=== PATIENT | male | born 1995 | race Caucasian/White ===

== ENCOUNTER 2024-07-19 08:54 | Inpatient (IN) ==
[2024-07-19 09:37] LABS: Basophils # (auto) 0.05 K/uL (0.00-0.20); Basophils % (auto) 0.4 %; Eosinophils # (auto) 0.03 K/uL (0.00-0.50); Eosinophils % (auto) 0.2 %; Hematocrit (blood only) 45.4 % (42.0-52.0); Hemoglobin 14.7 g/dl (14.0-18.0); Immature Granulocytes # (auto) 0.09 K/uL (0.01-0.20); Immature Granulocytes % (auto) 0.7 %; Lymphocytes # (auto) 1.74 K/uL (1.20-3.40); Lymphocytes % (auto) 13.1 %; Mean Corpuscular Hemoglobin 23.9 pg (25.0-34.0); Mean Corpuscular Hgb Conc 32.4 g/dL (32.0-36.0); Mean Corpuscular Volume 73.7 fL (80.0-100.0); Mean Platelet Volume 10.7 fL (9.4-12.4); Monocytes # (auto) 0.77 K/uL (0.11-0.59); Monocytes % (auto) 5.8 %; Neutrophils # (auto) 10.64 K/uL (1.40-6.50); Neutrophils % (auto) 79.8 %; Platelet Count 334 K/uL (130-400); RDW Coefficient of Variation 14.3 % (11.5-14.5); RDW Standard Deviation 37.3 fL (36.4-46.3); Red Blood Count 6.16 M/uL (4.70-6.10); White Blood Count 13.32 K/ul (4.8-10.8)
--- NOTE | 2024-07-19 09:51 | Emergency Department Note ---
History of Present Illness General Chief complaint: Abdominal Pain Stated complaint: R ABDOMINAL AND FLANK PAIN Time Seen by Provider: 07/19/24 09:06 History of Present Illness Maximum Pain Intensity: 5 Patient is a 21-year-old male with past medical history significant for anxiety, GERD, suspected IBS and migraine disorder who presents to the emergency department for evaluation of abdominal pain x 3 days. He reports that on Friday, he began to feel bloated. He subsequently developed pain in the right lower abdomen that radiated laterally. The pain has been fairly constant over the weekend. No associated nausea or vomiting. He thought that his symptoms could be related to the IBS, so he has been avoiding greasy and fatty foods and trying to increase his fluid intake. He denies any urinary symptoms. Had some diarrhea on Friday, but normal formed bowel movements over the last 2 days. No blood, no melena. He states the pain was a little bit better yesterday, but returned overnight. He currently rates his pain a 5/10. He states that while he is laying still the pain is fine, but it worsens if he tries to roll onto the right side in bed. He states he does not have when he walks. He takes omeprazole chronically, and started using some dicyclomine over the weekend to see if this would help with his pain. Home Medications Medication Instructions Recorded Confirmed Type rizatriptan 10 mg tablet (Maxalt) 10 mg PO Q2H PRN migraine headache 04/08/23 06/12/23 Rx #9 tabs Vitamin B-12 1 dose PO QAM 06/05/23 06/12/23 History Vitamin D3 1 dose PO QAM 06/05/23 06/12/23 History sertraline 100 mg tablet 100 mg PO QAM 06/05/23 06/12/23 History trazodone 100 mg tablet 100 mg PO HS 06/05/23 06/12/23 History omeprazole 40 mg capsule,delayed 40 mg PO BID #180 caps 10/07/23 07/19/24 Rx release dicyclomine 10 mg capsule 10 mg PO TID PRN abdominal 02/09/24 07/19/24 Rx pain/diarrhea #90 caps Allergies Allergy/AdvReac Type Severity Reaction Status Date / Time No Known Drug Allergies Allergy Unknown Verified 06/19/23 10:38 Past Med/Surg History Problem List Acute appendicitis (Acute) Medical History IBS (irritable bowel syndrome) GERD (gastroesophageal reflux disease) Vertigo Anxiety and depression History of migraine Surgical History S/P orchiopexy History of hernia repair Social History Smoking Status: Never smoker Second Hand Exposure: No; Do You Dip or Chew Tobacco: No; Hx Alcohol Use: No Hx Substance Use: No Preferred Language: Maori Communication Ability: Effective Patrol Conductor Required: No Beliefs That Will Affect Care: None Current Living Situation: Other Current Living Situation Comment: roommates Feels Safe at Home: Yes Safety Concerns: Feels Safe At This Time Assistive Devices: None Review of Systems A total of 10 systems reviewed and were otherwise negative Physical Exam Vital Signs Vital Signs - 24 hr 07/19/24 08:58 07/19/24 10:00 07/19/24 11:57 Temperature 36.7 C Temperature Source Temporal Artery Scan Pulse Rate 89 86 Pulse Rate [Finger] 79 Pulse Rhythm Regular Pulse Rhythm [Finger] Pulse Strength Normal Pulse Strength [Finger] Respiratory Rate 20 16 18 Respiratory Effort / Characteristics Non-Labored Spontaneous Respiratory Depth Normal Respiratory Pattern Regular Blood Pressure 122/83 124/79 Blood Pressure [Right Arm] 125/84 Blood Pressure Mean 96 Blood Pressure Mean [Right Arm] 97 Blood Pressure Position Sitting Blood Pressure Position [Right Arm] Pulse Oximetry 97 97 98 Oxygen Delivery Method Room Air Room Air Room Air Sepsis Recent Fever Within 48 Hours No Sepsis New/Unexplained Change in Mental Status No Sepsis Action Taken by Nursing No Action Required 07/19/24 11:59 Temperature 37.7 C H Temperature Source Oral Pulse Rate Pulse Rate [Finger] 81 Pulse Rhythm Pulse Rhythm [Finger] Regular Pulse Strength Pulse Strength [Finger] Normal Respiratory Rate 16 Respiratory Effort / Characteristics Non-Labored Spontaneous Respiratory Depth Normal Respiratory Pattern Regular Blood Pressure Blood Pressure [Right Arm] 129/80 Blood Pressure Mean Blood Pressure Mean [Right Arm] 96 Blood Pressure Position Blood Pressure Position [Right Arm] Lying Pulse Oximetry 96 Oxygen Delivery Method Room Air Sepsis Recent Fever Within 48 Hours Sepsis New/Unexplained Change in Mental Status Sepsis Action Taken by Nursing CONSTITUTIONAL: Well-appearing 29-year-old male in no acute distress laying on the gurney. EYES: Pupils equal, round, reactive to light and accommodation. EOMs intact without nystagmus. Sclera are anicteric. ENT: Tympanic membranes intact, with normal landmarks. External canals are clear. Oral and nasopharynx are clear. Mucous membranes are moist, no lesions, tongue and gums appear normal. CARDIOVASCULAR: Regular rate and rhythm. Peripheral pulses easily palpable. RESPIRATORY: Breath sounds equal and clear to auscultation. ABDOMEN: Bowel sounds are present. The abdomen is soft, nondistended, tender to percussion and palpation in the right lower quadrant. No guarding or rebound. INTEGUMENTARY: No lesions or rash, normal skin turgor. LYMPH: No lymphadenopathy. Course Course The patient was seen and assessed as above. External medical records were reviewed. He does have a history of some underlying GI issues, including GERD, and suspected IBS, but presents the emergency department for evaluation of fairly constant right lower quadrant pain over the last several days. IV lock was initiated and laboratory studies were collected. He declined medication needs in the emergency department. CBC with differential, CMP, lipase and urinalysis were collected. CT scan of the abdomen and pelvis with IV contrast was ordered. Diagnostics, as interpreted by me: Laboratory studies: Mildly elevated white count at 13,300 with left shift. No anemia. No electrolyte imbalance or JERRI, no transaminitis. Lipase is normal. Urine microscopy is clear. Imaging studies: CT scan of the abdomen and pelvis with IV contrast concerning for acute appendicitis. Patient was reassessed, all laboratory and diagnostic imaging studies were reviewed with him. Consultation was placed with general surgery, patient was seen by DAVID Urbano, working with Dr. Morris. He will go to the OR for appendectomy when a surgical suite is available. Given the concern for possible microperforation, he was given Zosyn IV pending the OR. Differential diagnosis: Differential diagnoses entertained included UTI, pyelonephritis, kidney stone, appendicitis, IBS, inflammatory bowel disease, infectious versus inflammatory colitis/enteritis, foodborne illness, among others. Administered Medications Acetaminophen (Acetaminophen 325 Mg Tab) 650 mg PO Q6H PRN PRN Reason: Pain & Pre PT Stop: 08/18/24 15:38 Last Admin: 07/19/24 17:46 Dose: 650 mg Documented By: KELSEY Piperacillin Sod/Tazobactam Sod (Zosyn) 4.5 gm in 100 mls @ 25 mls/hr IV Q8H JHONATAN; Protocol Stop: 07/29/24 15:59 Last Admin: 07/19/24 16:43 Dose: 25 mls/hr Documented By: KELSEY Meperidine HCl (Meperidine Hcl 25 Mg/Ml Carp/Vial) 6.25 mg IV Q5M PRN PRN Reason: Surgi Pain/Chills/Rigors Stop: 07/19/24 22:27 Last Admin: 07/19/24 14:30 Dose: 6.25 mg Documented By: JACK Oxycodone HCl (Oxycodone Hcl Ir 5 Mg Tab (Immediate Release)) 10 mg PO Q4H PRN PRN Reason: SEVERE Pain (7,8,9,10) Stop: 08/02/24 15:38 Last Admin: 07/19/24 17:49 Dose: 10 mg Documented By: KELSEY Discontinued Medications Bupivacaine HCl/Epinephrine Bitart (Bupivacaine/Epinephrine 0.25% 1:200,000 30 Ml Vial) Confirm Administered Dose 30 ml .ROUTE .STK-MED ONE Stop: 07/19/24 12:20 Last Admin: 07/19/24 13:59 Dose: 30 ml Documented By: [id number] Fentanyl Citrate (Fentanyl Citrate Pf 100 Mcg/2 Ml Vial) 25 mcg IV Q5M PRN PRN Reason: PACU Use Only-Pain Stop: 07/19/24 20:20 Last Admin: 07/19/24 14:48 Dose: 25 mcg Documented By: Admin: 07/19/24 14:43 Dose: 25 mcg Documented By: Admin: 07/19/24 14:38 Dose: 25 mcg Documented By: Admin: 07/19/24 14:33 Dose: 25 mcg Documented By: JACK Piperacillin Sod/Tazobactam Sod (Zosyn) 4.5 gm in 100 mls @ 200 mls/hr IV NOW ONE; Protocol Stop: 07/19/24 11:08 Last Infusion: 07/19/24 11:35 Dose: Infused Documented By: Admin: 07/19/24 11:02 Dose: 200 mls/hr Documented By: AVM Lactated Ringer's (Lr) 1,000 mls @ 15 mls/hr IV .Q24H JHONATAN Stop: 07/20/24 12:44 Last Admin: 07/19/24 16:47 Dose: Not Given Documented By: KELSEY Ioversol (Optiray 320 100ml) 94 ml IV ONCE ONE Stop: 07/19/24 10:12 Last Admin: 07/19/24 10:11 Dose: 94 ml Documented By: MIGUEL Meperidine HCl (Meperidine Hcl 25 Mg/Ml Carp/Vial) Confirm Administered Dose 25 mg .ROUTE .STK-MED ONE Stop: 07/19/24 14:31 Last Admin: 07/19/24 16:47 Dose: Not Given Documented By: KELSEY Medical Decision Making Differential Diagnosis See ED course. Medical Records Attestation: I reviewed the patient's medical records. Home Medications Current Medication List: was personally reviewed by me Laboratory Data Attestation: I reviewed the patient's lab results. 07/19/24 09:15 07/19/24 09:15 Lab Results 07/19/24 07/19/24 Range/Units 09:15 09:25 WBC 13.32 H (4.8-10.8) K/ul RBC 6.16 H (4.70-6.10) M/uL Hgb 14.7 (14.0-18.0) g/dl Hct 45.4 (42.0-52.0) % MCV 73.7 L (80.0-100.0) fL MCH 23.9 L (25.0-34.0) pg MCHC 32.4 (32.0-36.0) g/dL RDW Std Deviation 37.3 (36.4-46.3) fL RDW Coeff of Adis 14.3 (11.5-14.5) % Plt Count 334 (130-400) K/uL MPV 10.7 (9.4-12.4) fL Immature Gran % (Auto) 0.7 % Neut % (Auto) 79.8 % Lymph % (Auto) 13.1 % [place] % (Auto) 5.8 % Eos % (Auto) 0.2 % Baso % (Auto) 0.4 % Neut # (Auto) 10.64 H (1.40-6.50) K/uL Lymph # (Auto) 1.74 (1.20-3.40) K/uL [place] # (Auto) 0.77 H (0.11-0.59) K/uL Eos # (Auto) 0.03 (0.00-0.50) K/uL Baso # (Auto) 0.05 (0.00-0.20) K/uL Immature Gran # (Auto) 0.09 (0.01-0.20) K/uL Sodium 139 (136-145) mmol/L Potassium 4.2 (3.5-5.1) mmol/L Chloride 100 (98-107) mmol/L Carbon Dioxide 31 (21-32) mmol/L Anion Gap 8 (3-11) BUN 9 (6-23) mg/dl Creatinine 0.91 (0.6-1.4) mg/dl Est Cr Clr Drug Dosing 118.9 ml/min eGFR 117.73 BUN/Creatinine Ratio 9.9 L (10-20) Glucose 115 H (70-99(Fasting)) mg/dl Calcium 10.0 (8.6-10.3) mg/dl Total Bilirubin 0.7 (0.2-1.0) mg/dl AST 13 (13-39) U/L ALT 11 (7-52) U/L Alkaline Phosphatase 72 (34-104) U/L Total Protein 7.4 (6.0-8.3) gm/dl Albumin 4.5 (3.4-5.0) gm/dl Globulin 2.9 (2.5-4.0) gm/dl Albumin/Globulin Ratio 1.6 (0.9-2) Lipase 15 (11-82) U/L Urine Color Yellow Urine Appearance Clear (Clear) Urine pH 7.0 (4.5-7.5) Ur Specific [place] 1.015 (1.000-1.030) Urine Protein Negative (Negative) Urine Glucose (UA) Negative (Negative) Urine Ketones Negative (Negative) Urine Blood Negative (Negative) Urine Nitrite Negative (Negative) Urine Bilirubin Negative (Negative) Urine Urobilinogen Negative (Negative) Ur Leukocyte Esterase Negative (Negative) Imaging Data Attestation: I personally reviewed and interpreted this imaging study as follows: Radiologist's Impression: Abdomen/Pelvis CT 07/19/24 09:41 CT OF THE ABDOMEN AND PELVIS WITH CONTRAST CLINICAL HISTORY: RLQ ABD PAIN X 3 DAYS COMPARISON STUDY: None. TECHNIQUE: Following IV administration of 94 mL of Optiray, axial images of the abdomen and pelvis were obtained from the lung bases to the proximal femurs. Images were reviewed in the axial, sagittal, and coronal planes. IV contrast was administered without complication. Automated exposure control was utilized for the study. A dose lowering technique was utilized adhering to the principles of ALARA. CT DOSE: 925.69 mGy.cm FINDINGS: Lung bases are unremarkable. No pneumatosis, free air or portal venous gas is present. Lateral segment hypodense lesion favors a small cyst. The spleen is mildly enlarged. There is no biliary or pancreatic ductal dilatation. There is trace perihepatic fluid. There is no evidence for a bowel obstruction. Appendicolith within the base of the appendix is noted. Additional appendicoliths are noted. The appendix is markedly dilated, measuring 2.1 cm in caliber. There is moderate periappendiceal stranding and fluid. No free air. No extraluminal contrast is present. Thickening of the base of the cecum is secondary to acute appendicitis. Prominent ileocolic lymph nodes are reactive. A small amount of fluid within the pelvis is present. IMPRESSION: Findings consistent with acute appendicitis. Markedly dilated appendix which contains several appendicoliths. Moderate periappendiceal inflammation. No free air or periappendiceal abscess. Given the degree of appendiceal dilatation and inflammation, occult perforation cannot be excluded. ACT 112: Negative or not required by law. Electronically signed by: Emre Renteria M.D. 07/19/2024 10:29 AM MDM Narrative See ED course. Impression & Plan Acute appendicitis Discharge Plan Visit Data Chief Complaint: Abdominal Pain Stated Complaint: R ABDOMINAL AND FLANK PAIN ED Provider: Fabian Porter ED Midlevel Provider: Shashank Delgado Discharge Problem: Acute appendicitis Patient Disposition: Home - Self-Care Discharge Instructions Interventions: ED Discharge Assessment Last Done: 07/19/24 11:57
[2024-07-19 09:57] LABS: Albumin Globulin Ratio 1.6 (0.9-2); Albumin Level 4.5 gm/dl (3.4-5.0); BUN Creatinine Ratio 9.9 (10-20); Bilirubin,Total 0.7 mg/dl (0.2-1.0); Creatinine Clr Calc Pharmacy 118.9 ml/min; Globulin 2.9 gm/dl (2.5-4.0); Potassium 4.2 mmol/L (3.5-5.1); Total Protein 7.4 gm/dl (6.0-8.3)
[2024-07-19 10:09] LABS: Appearance Urine Clear (Clear); Bilirubin Urine Negative (Negative); Blood Urine Negative (Negative); Color Urine Yellow; Glucose Urine UA Negative (Negative); Ketones Urine Negative (Negative); Leukocyte Esterase Urine Negative (Negative); Nitrite Urine Negative (Negative); Protein Urine Negative (Negative); Specific Gravity Urine 1.015 (1.000-1.030); Urobilinogen Urine Negative (Negative)
[2024-07-19] MEDS: OPTIRAY 320 100ml IV ONE (10:11)
--- NOTE | 2024-07-19 10:32 | CT Scan Report ---
CT OF THE ABDOMEN AND PELVIS WITH CONTRAST CLINICAL HISTORY: RLQ ABD PAIN X 3 DAYS COMPARISON STUDY: None. TECHNIQUE: Following IV administration of 94 mL of Optiray, axial images of the abdomen and pelvis we re obtained from the lung bases to the proximal femurs. Images were reviewed in the axial, sagittal, and coronal planes. IV contrast was administered without complication. Automated exposure control wa s utilized for the study. A dose lowering technique was utilized adhering to the principles of ALARA . CT DOSE: 925.69 mGy.cm FINDINGS: Lung bases are unremarkable. No pneumatosis, free air or portal venous gas is present. Late ral segment hypodense lesion favors a small cyst. The spleen is mildly enlarged. There is no biliary or pancreatic ductal dilatation. There is trace perihepatic fluid. There is no evidence for a bowel o bstruction. Appendicolith within the base of the appendix is noted. Additional appendicoliths are not ed. The appendix is markedly dilated, measuring 2.1 cm in caliber. There is moderate periappendiceal stranding and fluid. No free air. No extraluminal contrast is present. Thickening of the base of the cecum is secondary to acute appendicitis. Prominent ileocolic lymph nodes are reactive. A small amoun t of fluid within the pelvis is present. IMPRESSION: Findings consistent with acute appendicitis. Markedly dilated appendix which contains se veral appendicoliths. Moderate periappendiceal inflammation. No free air or periappendiceal abscess. Given the degree of appendiceal dilatation and inflammation, occult perforation cannot be excluded. ACT 112: Negative or not required by law. Electronically signed by: Emre Renteria M.D. 07/19/2024 10:29 AM
[2024-07-19] MEDS: PIPERACILLIN/TAZOBACTAM 4.5 GM/100 ML BAG IV ONE (11:02)
[2024-07-19] MEDS ORDERED: ROCURONIUM BROMIDE 10 MG/ML 5 ML VIAL IV ONE ×2 (11:38→12:55)
[2024-07-19] MEDS ORDERED: PROPOFOL IV EMULSION 10 MG/ML 20 ML VIAL IV ONE ×3 (11:38→13:31)
[2024-07-19] MEDS ORDERED: ONDANSETRON INJ 2 MG/ML 2 ML VIAL ONE (11:38)
[2024-07-19] MEDS ORDERED: DEXAMETHASONE SOD INJ 4 MG/ML VIAL ONE (11:38)
[2024-07-19] MEDS ORDERED: LIDOCAINE 2% 2 ML VIAL/AMP(20MG/ML) INFIL ONE (11:38)
[2024-07-19] MEDS ORDERED: MIDAZOLAM HCL 1 MG/ML 2ML VIAL ONE (11:39)
[2024-07-19] MEDS ORDERED: fentaNYL citrate PF 100 MCG/2 ML VIAL ONE (11:39)
[2024-07-19] MEDS ORDERED: SUGAMMADEX SODIUM 200 MG/2 ML VIAL IV ONE (11:40)
--- NOTE | 2024-07-19 11:44 | Surgery Consultation ---
Date of Consultation July 19, 2024 Assessment & Plan (1) Acute appendicitis: CT scan images and results were personally viewed and interpreted by myself He has some significant inflammation and dilated appendix with several appendicoliths with likely perforation based on his history Will plan on a laparoscopic appendectomy, possible open today Consent was obtained, risks discussed including bleeding, infection, leak, abscess History of Present Illness Reason for Consultation: Acute appendicitis History of Present Illness This is a 29-year-old male who came to the ER with right lower quadrant abdominal pain sharp in nature since Friday afternoon. He states that the pain was getting worse however yesterday the pain did improve. There is no radiation of the pain. There is no aggravating or relieving factors. He denies any nausea or vomiting or constipation or diarrhea. He did have an open inguinal hernia repair at age 11, but no other abdominal surgeries. Denies any fevers or chills. Allergies Allergy/AdvReac Type Severity Reaction Status Date / Time No Known Drug Allergies Allergy Unknown Verified 06/19/23 10:38 Home Medications Medication Instructions Recorded Confirmed Type rizatriptan 10 mg tablet (Maxalt) 10 mg PO Q2H PRN migraine headache 04/08/23 06/12/23 Rx #9 tabs Vitamin B-12 1 dose PO QAM 06/05/23 06/12/23 History Vitamin D3 1 dose PO QAM 06/05/23 06/12/23 History sertraline 100 mg tablet 100 mg PO QAM 06/05/23 06/12/23 History trazodone 100 mg tablet 100 mg PO HS 06/05/23 06/12/23 History omeprazole 40 mg capsule,delayed 40 mg PO BID #180 caps 10/07/23 07/19/24 Rx release dicyclomine 10 mg capsule 10 mg PO TID PRN abdominal 02/09/24 07/19/24 Rx pain/diarrhea #90 caps Patient History Medical History IBS (irritable bowel syndrome) GERD (gastroesophageal reflux disease) Vertigo Anxiety and depression History of migraine Surgical History S/P orchiopexy History of hernia repair Social History Smoking Status: Never smoker Second Hand Exposure: No; Do You Dip or Chew Tobacco: No; Hx Alcohol Use: No Hx Substance Use: No Preferred Language: Ecuadorean Communication Ability: Effective Envelope Machine Adjuster Required: No Beliefs That Will Affect Care: None Current Living Situation: Other Current Living Situation Comment: roommates Feels Safe at Home: Yes Assistive Devices: None Review of Systems Constitutional: no fever and no chills Eyes: no blind spots and no worsening vision Ear, Nose, Mouth, Throat: no ear pain and no hearing loss Respiratory: no cough and no dyspnea Cardiovascular: no chest pain and no dyspnea on exertion Gastrointestinal: + abdominal pain and + nausea; no vomiti ng Genitourinary: no dysuria or no nocturia Musculoskeletal: no back pain and no neck pain Integumentary: no acne, no erythema and no urticaria Neurologic: no gait abnormality, no headache(s) and no abnormal speech Psychiatric: no behavioral changes and no depression Hematologic / Lymphatic: no easy bleeding and no easy bruising Physical Exam Constitutional: WD/WN, vitals as above Eyes: PERRL, conjunctivae normal, anicteric sclerae ENMT: external ear and nose normal, oropharynx normal Neck: trachea midline, no thyromegaly Respiratory: normal respiratory effort, lungs clear to auscultation Cardiovascular: RRR, no murmur, no edema Gastrointestinal (Abdomen): Inspection/Auscultation: abdomen normal to inspection; abdomen not distended Percussion/Palpation: + abdomen tender (Right lower quadrant), + guarding and abdomen soft; no hernia Musculoskeletal: no cyanosis or clubbing, extremities motor strength 5/5 Skin: no rashes, warm and dry Neurologic: PERRL, EOMI, accommodation nl, no face palsy, no dysarthria Psychiatric: A+Ox3, euthymic affect Results & Data Vital Signs (Past 12 Hours) Vital Signs Temp Pulse Pulse Resp BP BP Pulse Ox 07/19/24 10:00 79 16 125/84 97 07/19/24 08:58 36.7 C 89 20 122/83 97 O2 Del Method 07/19/24 10:00 Room Air 07/19/24 08:58 Room Air PG Care Time/CCT Total # of Minutes Spent Total Time Spent with Patient: Total time spent is greater than 50% in coordination of care (as documented) at patient's floor/unit and/or counseling patient: Coding Level of Care Code 88347 OFFICE CONSULT LVL Diagnoses Acute appendicitis K35.80
[2024-07-19] MEDS ORDERED: KETOROLAC 30 MG/ML VIAL ONE (11:45)
[2024-07-19] MEDS ORDERED: ONDANSETRON INJ 2 MG/ML 2 ML VIAL IV PRN (12:20)
[2024-07-19] MEDS ORDERED: ePHEDrine sulfate 50 MG/ML AMP IV PRN (12:20)
[2024-07-19] MEDS ORDERED: ATROPINE SULFATE 0.1 MG/ML 10ML SYR IV PRN (12:20)
--- NOTE | 2024-07-19 12:20 | Anesthesiology Consultation ---
Date of Service July 19, 2024 Assessment & Plan (1) Encounter for pre-operative examination: Chart Review Chart Review: Acceptable Risk for Surgery and Patient NOT seen in Pre Admission Testing Consults Requested none History Surgery Operation Date: 07/19/24 14:45 Proposed Procedures p Laparoscopic Appendectomy - Abad Morris DO Height/Weight Height: 5 ft 8.5 in Weight: 77.7 kg Allergies Allergy/AdvReac Type Severity Reaction Status Date / Time No Known Drug Allergies Allergy Unknown Verified 06/19/23 10:38 Medications Home Medications Medication Instructions Recorded Confirmed Last Taken rizatriptan 10 mg tablet (Maxalt) 10 mg PO Q2H PRN migraine headache 04/08/23 06/12/23 Unknown #9 tabs Vitamin B-12 1 dose PO QAM 06/05/23 06/12/23 06/10/23 Vitamin D3 1 dose PO QAM 06/05/23 06/12/23 06/10/23 sertraline 100 mg tablet 100 mg PO QAM 06/05/23 06/12/23 06/12/23 trazodone 100 mg tablet 100 mg PO HS 06/05/23 06/12/23 06/11/23 omeprazole 40 mg capsule,delayed 40 mg PO BID #180 caps 10/07/23 07/19/24 Unknown release dicyclomine 10 mg capsule 10 mg PO TID PRN abdominal 02/09/24 07/19/24 Unknown pain/diarrhea #90 caps NPO Date Last Intake of Fluids: 07/19/24 Time Last Intake of Fluids: 08:30 Date Last Intake of Solids: 07/18/24 Time Last Intake of Solids: 21:30 Past Medical History Medical History IBS (irritable bowel syndrome) GERD (gastroesophageal reflux disease) Vertigo Anxiety and depression History of migraine Past Surgical History Surgical History S/P orchiopexy History of hernia repair Social History Smoking Status: Never smoker Do You Dip or Chew Tobacco: No Hx Alcohol Use: No Hx Substance Use: No substance use type: does not use Physical Exam Vital Signs Last Vital Signs Temp 99.9 F H 07/19/24 11:59 Pulse 81 11/11/24 11:59 Resp 16 07/19/24 11:59 BP 129/80 07/19/24 11:59 Pulse Ox 96 07/19/24 11:59 O2 Del Method Room Air 07/19/24 11:59 Testing Laboratory Results 07/19/24 09:15 07/19/24 09:15 Urine Color Yellow 07/19/24 09:25 Urine Appearance Clear (Clear) 07/19/24 09:25 Urine pH 7.0 (4.5-7.5) 07/19/24 09:25 Ur Specific [place] 1.015 (1.000-1.030) 07/19/24 09:25 Urine Protein Negative (Negative) 07/19/24 09:25 Urine Glucose (UA) Negative (Negative) 07/19/24 09:25 Urine Ketones Negative (Negative) 07/19/24 09:25 Urine Nitrite Negative (Negative) 07/19/24 09:25 Ur Leukocyte Esterase Negative (Negative) 07/19/24 09:25
[2024-07-19] MEDS: BUPIVACAINE/EPINEPHRINE 0.25% 1:200,000 30 ML VIAL ONE (13:59)
--- NOTE | 2024-07-19 14:09 | Post Operative Brief Note ---
PG Immediate Post Op with CF Date of Surgery July 19, 2024 Pre & Post Diagnosis Operation Date: 07/19/24 14:45 Pre-Op Diagnosis: Acute Appendicitis Post-Op Diagnosis: Acute Perforated Appendicitis I identified the patient and participated in the time-out.: Yes Procedure Operation Date: 07/19/24 14:45 Actual Procedures p Laparoscopic Appendectomy(Not Applicable) - Abad Morris DO Surgeon Abad Morris DO Manager Logistic Ivonne HERNANDEZ Estimated Blood Loss 20 Findings See Below Perforated appendicitis Healthy appearing cecal staple line Specimens Specimen Description: A: Appendix Drains Andujar Catheter and Papo-Parker Drain Anesthesia Type General Complications none Disposition Disposition: Recovery Room
--- NOTE | 2024-07-19 14:12 | Operative Report ---
PG Post Operative Report Pre & Post Diagnosis Operation Date: 07/19/24 14:45 Pre-Op Diagnosis: Acute Appendicitis Post-Op Diagnosis: Acute Perforated Appendicitis I identified the patient and participated in the time-out.: Yes Procedure Operation Date: 07/19/24 14:45 Actual Procedures p Laparoscopic Appendectomy(Not Applicable) - Abad Morris DO Surgeon Abad Morris DO Ethylene Plant Operator Ivonne HERNANDEZ Estimated Blood Loss 20 Findings See Below Perforated appendix Healthy appearing cecal staple line Specimens Appendix to pathology Drains 19 Yoruba Abad drain in the right lower quadrant and pelvis Anesthesia Type General Complications none Disposition Disposition: Recovery Room Indications 29-year-old male with acute appendicitis Description of Procedure The patient was brought to the OR and placed in the supine position and SCD's placed. At this time he underwent general endotracheal anesthesia without incident. At this time a Andujar catheter was placed under sterile conditions. His abdomen was prepped and draped in the usual sterile fashion. He was given appropriate pre-operative antibiotics. A timeout was called, the procedure was verified as Laparoscopic appendectomy, possible open. Surgical, anesthesia and nursing teams agreed and the procedure was begun. After injection of 0.25% Marcaine with epinephrine, a supraumbilical incision was made using a #11 blade scalpel and carried down to the fascia with a hemostat. The abdomen was then elevated with towel clamps and entered using the Veress needle confirming position using the saline drop test. Pneumoperitoneum was established and 5mm trocar was placed. Laparoscope was introduced. No injury was seen from our entrance to the abdomen. At this time a 5mm suprapubic port and 12mm LLQ port were placed under direct visualization. The patient was placed in Trendelenburg and rotated to the left. At this time the appendix was visualized and the tip was freed and elevated toward the abdominal wall. The appendix itself was densely adhered to the right pelvic sidewall. This was mobilized using blunt dissection and we did encounter purulence consistent with an abscess. There was also a small perforation of the appendix just distal to the base. A window was created in the mesoappendix at the base of the appendix. A 45mm purple load stapler was then fired across the base of the appendix which appeared healthy. The mesoappendix was then taken using Harmonic device. The appendix was then placed in an Endocatch bag and removed through the LLQ port site. Staple line was inspected and was intact. Hemostasis was complete. A small amount of purulent fluid was suctioned out of the RLQ and pelvis. 5 mL of Floseal hemostatic agent was placed along the staple line. A 19 Yoruba Abad drain was then introduced through the left lower quadrant port site and brought out through the suprapubic port and laid in the right paracolic gutter and right pelvis. The 12 mm port was then closed at the fascial level using a 0 Vicryl suture. All ports were removed under direct visualization and no bleeding was noted. The abdomen was desufflated and the skin was closed using 4-0 Monocryl in a subcuticular fashion. Sterile dressings were applied. Andujar catheter was removed. The patient was then awakened from anesthesia having remained stable throughout the entire case and transported to PACU. All needle and sponge counts were correct x 2. The nurse practitioner was present scrubbed the entire case. She was essential in positioning, prepping and draping the patient, driving laparoscope, retraction exposure, closure of the incisions and placement of dressings. I attest to the content of the Intraoperative Record and any orders documented therein. Any exceptions are noted below.
[2024-07-19] MEDS: MEPERIDINE HCL 25 MG/ML CARP/VIAL IV PRN (14:30)
[2024-07-19] MEDS: fentaNYL citrate PF 100 MCG/2 ML VIAL IV PRN (14:33)
--- NOTE | 2024-07-19 15:01 | Anesthesiology Progress Note ---
Date of Service July 19, 2024 Anesthesia Post Procedure Vital Signs Vital Signs: Temp Pulse Pulse Pulse Resp BP BP 07/19/24 14:50 91 H 16 121/75 07/19/24 14:40 88 16 117/75 07/19/24 14:30 88 16 121/82 07/19/24 14:24 97.0 F L 104 H 16 116/84 07/19/24 11:59 99.9 F H 81 16 07/19/24 11:57 86 18 124/79 07/19/24 10:00 79 16 07/19/24 08:58 98.1 F 89 20 122/83 BP Pulse Ox O2 Del Method O2 Flow Rate 07/19/24 14:50 96 Oxymask 5 07/19/24 14:40 99 Oxymask 5 07/19/24 14:30 99 Oxymask 5 07/19/24 14:24 99 Oxymask 5 07/19/24 11:59 129/80 96 Room Air 07/19/24 11:57 98 Room Air 07/19/24 10:00 125/84 97 Room Air 07/19/24 08:58 97 Room Air Pain Intensity Right Lower Abdomen: Pain Intensity: 8 Transfer of Care Handoff Completed per policy Notes Mental Status: alert / awake / arousable and participated in evaluation Patient Amnestic to Procedure: Yes Nausea / Vomiting: adequately controlled Pain: adequately controlled Airway Patency, RR, SpO2: stable & adequate BP & HR: stable & adequate Hydration State: stable & adequate Anesthetic Complications: no major complications apparent and Pt Satisfied with anesthetic care
[2024-07-19] MEDS ORDERED: ACETAMINOPHEN 1,000 MG/100 ML VIAL IV PRN (15:39)
[2024-07-19] MEDS ORDERED: MoRPHine SULFATE 4 MG/ML 1 ML CARP\\VIAL IV PRN (15:39)
[2024-07-19] MEDS ORDERED: MoRPHine SULFATE 2 MG/ML CARP IV PRN (15:39)
[2024-07-19] MEDS: PIPERACILLIN/TAZOBACTAM 4.5 GM/100 ML BAG IV SCH (16:43)
[2024-07-19] MEDS: LACTATED RINGER'S 1,000 ML IV SCH (16:47)
[2024-07-19] MEDS: MEPERIDINE HCL 25 MG/ML CARP/VIAL ONE (16:47)
[2024-07-19] MEDS: ACETAMINOPHEN 325 MG TAB PO PRN (17:46)
[2024-07-19] MEDS: oxyCODONE HCL IR 5 MG TAB (IMMEDIATE RELEASE) PO PRN ×2 (17:49→23:19)
[2024-07-19] MEDS: traZODone HCL 100 MG TAB PO SCH (20:58)
[2024-07-19] MEDS: PANTOprazole 40 MG TAB PO SCH (20:58)
[2024-07-20] MEDS: ONDANSETRON INJ 2 MG/ML 2 ML VIAL IV PRN (06:52)
[2024-07-20] MEDS: SERTRALINE HCL 100 MG TABLET PO SCH (08:08)
--- NOTE | 2024-07-20 08:25 | Surgery Progress Note ---
Date of Service July 20, 2024 Assessment & Plan (1) Acute appendicitis: Plan: POD 1 perforated lap appy with Dr[address] Morris expected post surgical pain VSS, labs pending, incentive spironmetry Q1h while awake some urinary hesitancy overnight but was able to void, increase po H20, oob to BR tolerating diet surgical drain serosanguineous 25/75cc in 12/24hr Continue IV antibiotics Admission and Anticipated Discharge Date Admission Date: July 19, 2024 Supervising Physician Co-Signing Physician Notes Postop day 1 laparoscopic appendectomy for perforated appendicitis He is doing well and labs are pending He is tolerating a low fiber diet He is having some trouble urinating but is able to empty about half of his bladder Continue his IV antibiotics for today we will follow-up on his labs If he is afebrile and is able to tolerate his diet he may be discharged in the next 24 hours Subjective pt report pain controlled with medication hesitancy with urination last night but was able to void denies cp, sob, n/v Review of Systems Constitutional: no fever and no chills Respiratory: no dyspnea Cardiovascular: no chest pain Gastrointestinal: + abdominal pain; no nausea and no vomit ing Genitourinary: + urinary hesitancy Musculoskeletal: no muscle weakness Psychiatric: no confusion Physical Exam Constitutional: cooperative and comfortable; no acute distress Respiratory: normal respiratory effort and able to speak in complete sentences; no respiratory distress Cardiovascular: Rate/Rhythm: + tachycardic (95) Gastrointestinal (Abdomen): Inspection/Auscultation: + abdominal surgical incision and + abdominal surgical drain present; abdomen not distended Percussion/Palpation: + abdomen tender and abdomen soft Psychiatric: A+Ox3, euthymic affect Results & Data Vital Signs (Past 12 Hours) Vital Signs Temp Pulse Resp BP BP Pulse Ox O2 Del Method 07/20/24 07:57 98.4 F 95 H 16 119/73 95 Room Air 07/20/24 03:07 98.4 F 70 16 109/76 97 Room Air 07/19/24 23:00 98.1 F 81 18 114/72 98 Room Air PG Care Time/CCT Total # of Minutes Spent Total Time Spent with Patient: Total time spent is greater than 50% in coordination of care (as documented) at patient's floor/unit and/or counseling patient: Coding Level of Care Code 38871 Post Operative Follow-Up Diagnoses Acute appendicitis K35.80
[2024-07-20 10:20] LABS: Basophils # (auto) 0.02 K/uL (0.00-0.20); Basophils % (auto) 0.1 %; Hemoglobin 14.4 g/dl (14.0-18.0); Immature Granulocytes # (auto) 0.11 K/uL (0.01-0.20); Immature Granulocytes % (auto) 0.8 %; Lymphocytes % (auto) 10.5 %; Mean Corpuscular Hemoglobin 23.8 pg (25.0-34.0); Mean Corpuscular Hgb Conc 32.7 g/dL (32.0-36.0); Mean Corpuscular Volume 72.7 fL (80.0-100.0); Mean Platelet Volume 10.1 fL (9.4-12.4); Monocytes # (auto) 0.95 K/uL (0.11-0.59); Monocytes % (auto) 7.1 %; Neutrophils # (auto) 10.86 K/uL (1.40-6.50); Neutrophils % (auto) 81.5 %; Platelet Count 360 K/uL (130-400); RDW Coefficient of Variation 14.2 % (11.5-14.5); Red Blood Count 6.05 M/uL (4.70-6.10); White Blood Count 13.34 K/ul (4.8-10.8)
[2024-07-20 10:39] LABS: BUN Creatinine Ratio 13.8 (10-20); Calcium 9.6 mg/dl (8.6-10.3); Creatinine Clr Calc Pharmacy 115.1 ml/min; Potassium 3.9 mmol/L (3.5-5.1)
--- NOTE | 2024-07-21 07:44 | Surgery Progress Note ---
Date of Service July 21, 2024 Assessment & Plan (1) Acute appendicitis: Plan: POD#2 laparoscopic appendectomy for perforated appendicitis labs are pending this AM. last evening's vitals show HR 118 and Temp 99, will re-eval labs and vitals this AM upon new assessment Pt reports worsening pain this AM, last received oxycodone at midnight....will adjust tylenol to standing and add a dose of toradol this AM, continue prn narcotics Continue KAYLEIGH drain and IV abx for now Encourage OOB ambulating/pulmonary toilet Will continue to monitor closely, he is at high risk for developing abscess given his appendix was perforated Admission and Anticipated Discharge Date Admission Date: July 19, 2024 Supervising Physician Co-Signing Physician Notes Postoperative day 2 laparoscopic appendectomy for perforated appendicitis He does seem improved although pain control has been an issue, we will push the p.o. Oxy and IV Tylenol His white count is improved and is afebrile He has been voiding much more frequently without issue as opposed yesterday Tentative plan will be discharge tomorrow if he continues to improve and is afebrile Subjective Patient reports 9/10 pain this AM while sitting at the side of the bed. Mostly across lower abdomen. No nausea/vomiting. Reports lack of sleep overnight due to IV's beeping. Complains of intermittent lightheadedness. Says his narcotics were limited to prevent constipation, but he has started passing flatus. Physical Exam Physical Exam: awake, sitting at side of the bed with hands on walker appears in pain and spli nting with pillow Respiratory: normal respiratory effort Gastrointestinal (Abdomen): KAYLEIGH drain with serosang slightly cloudy appearing fluid PG Care Time/CCT Total # of Minutes Spent Total Time Spent with Patient: Total time spent is greater than 50% in coordination of care (as documented) at patient's floor/unit and/or counseling patient: Coding Level of Care Code 99370 Post Operative Follow-Up Diagnoses Acute appendicitis K35.80
[2024-07-21] MEDS: ACETAMINOPHEN 1,000 MG/100 ML VIAL IV SCH (07:48)
[2024-07-21] MEDS: KETOROLAC TROMETHAMINE 15 MG/ML VIAL IV ONE (07:48)
[2024-07-21 08:25] LABS: Basophils # (auto) 0.04 K/uL (0.00-0.20); Basophils % (auto) 0.3 %; Eosinophils # (auto) 0.03 K/uL (0.00-0.50); Eosinophils % (auto) 0.2 %; Hematocrit (blood only) 42.7 % (42.0-52.0); Hemoglobin 13.8 g/dl (14.0-18.0); Immature Granulocytes # (auto) 0.17 K/uL (0.01-0.20); Immature Granulocytes % (auto) 1.4 %; Lymphocytes # (auto) 1.54 K/uL (1.20-3.40); Lymphocytes % (auto) 12.7 %; Mean Corpuscular Hemoglobin 23.6 pg (25.0-34.0); Mean Corpuscular Hgb Conc 32.3 g/dL (32.0-36.0); Mean Platelet Volume 10.3 fL (9.4-12.4); Monocytes # (auto) 1.11 K/uL (0.11-0.59); Monocytes % (auto) 9.1 %; Neutrophils # (auto) 9.28 K/uL (1.40-6.50); Neutrophils % (auto) 76.3 %; Platelet Count 328 K/uL (130-400); RDW Coefficient of Variation 14.1 % (11.5-14.5); RDW Standard Deviation 37.1 fL (36.4-46.3); Red Blood Count 5.85 M/uL (4.70-6.10); White Blood Count 12.17 K/ul (4.8-10.8)
[2024-07-21] MEDS ORDERED: ACETAMINOPHEN 1,000 MG/100 ML VIAL IV PRN (11:02)
[2024-07-21] MEDS: ACETAMINOPHEN 325 MG TAB PO SCH (13:42)
--- NOTE | 2024-07-22 08:01 | Surgery Progress Note ---
Date of Service July 22, 2024 Assessment & Plan (1) Acute appendicitis: Plan: POD#3 laparoscopic appendectomy for perforated appendicitis labs are pending this AM. vitals are stable Pain manageable on PO regimen of tylenol/oxcodone Continue KAYLEIGH drain for now, 30cc documented. will consider removal day of dispo Encourage OOB ambulating/pulmonary toilet Pending blood work we may consider dispo later today if pt continues to feel & do well Plan on d/c on po abx and close follow up in the office with dr. brody Admission and Anticipated Discharge Date Admission Date: July 19, 2024 Supervising Physician Co-Signing Physician Notes Postoperative day 3 laparoscopic appendectomy for perforated appendicitis He is tolerating a diet without nausea and vomiting and is passing flatus, but no BM His white count continues to downtrend and has been afebrile His pains been controlled He can be discharged today and we will remove his drain prior to discharge Subjective Patient says he slept a bit better last night than previously. Pain remains present, but is manageable on pain regimen. Tolerating diet, no n/v. + flatus. No BM. Physical Exam Physical Exam: awake/alert, no distress Respiratory: normal respiratory effort Gastrointestinal (Abdomen): Inspection/Auscultation: + abdominal surgical incision (c/d/i) Percussion/Palpation: + abdomen tender (bilateral lower abdomen, worse in RLQ and drain site ) and abdomen soft KAYLEIGH serosang, 30cc documented Results & Data Vital Signs (Past 12 Hours) Vital Signs Temp Pulse Resp BP Pulse Ox O2 Del Method 07/21/24 21:51 98.5 F 97 H 16 130/81 96 Room Air PG Care Time/CCT Total # of Minutes Spent Total Time Spent with Patient: Total time spent is greater than 50% in coordination of care (as documented) at patient's floor/unit and/or counseling patient: Coding Level of Care Code 91232 Post Operative Follow-Up Diagnoses Acute appendicitis K35.80
[2024-07-22 08:13] VITALS: BP 111/68; PULSE 72; RESP 18; TEMP 98.1; O2SAT 95
[2024-07-22 08:54] LABS: Basophils # (auto) 0.06 K/uL (0.00-0.20); Basophils % (auto) 0.6 %; Eosinophils # (auto) 0.14 K/uL (0.00-0.50); Eosinophils % (auto) 1.3 %; Hematocrit (blood only) 38.2 % (42.0-52.0); Hemoglobin 12.7 g/dl (14.0-18.0); Immature Granulocytes # (auto) 0.22 K/uL (0.01-0.20); Lymphocytes # (auto) 1.33 K/uL (1.20-3.40); Lymphocytes % (auto) 12.3 %; Mean Corpuscular Hemoglobin 23.9 pg (25.0-34.0); Mean Corpuscular Hgb Conc 33.2 g/dL (32.0-36.0); Mean Corpuscular Volume 71.9 fL (80.0-100.0); Mean Platelet Volume 10.4 fL (9.4-12.4); Monocytes # (auto) 0.97 K/uL (0.11-0.59); Neutrophils # (auto) 8.07 K/uL (1.40-6.50); Neutrophils % (auto) 74.8 %; Platelet Count 330 K/uL (130-400); RDW Standard Deviation 35.9 fL (36.4-46.3); Red Blood Count 5.31 M/uL (4.70-6.10); White Blood Count 10.79 K/ul (4.8-10.8)
[2024-07-22 09:09] LABS: BUN Creatinine Ratio 8.9 (10-20); Calcium 9.1 mg/dl (8.6-10.3); Creatinine Clr Calc Pharmacy 136.9 ml/min; Potassium 3.6 mmol/L (3.5-5.1)
--- NOTE | 2024-07-22 13:55 | Discharge Summary ---
Date of Service July 22, 2024 Principal Diagnosis acute appendicitis with perforation Discharge Exam Constitutional cooperative and comfortable; no acute distress Respiratory normal respiratory effort and able to speak in complete sentences; no respiratory distress Cardiovascular Rate/Rhythm: regular rate Gastrointestinal (Abdomen) Inspection/Auscultation: + abdominal surgical incision and + abdominal surgical drain present; abdomen not distended Percussion/Palpation: + abdomen tender and abdomen soft Psychiatric A+Ox3, euthymic affect Discharge Data Allergies Allergy/AdvReac Type Severity Reaction Status Date / Time No Known Drug Allergies Allergy Unknown Verified 06/19/23 10:38 Procedures Performed Operation Date: 07/19/24 14:45 Actual Procedures p Laparoscopic Appendectomy(Not Applicable) - Abad Morris, Ordered Studies 07/19/24 09:41 CT abd pelvis IV con only Stat Hospital Course (1) Acute appendicitis: This is a 29 yo male who presented to the [facility] ED on 07/19/24 with abdominal pain. Workup in the ED showed a WBC of [address] a/p concerning for acute appendicitis. The patient was tender to palpation in the RLQ. Patient made NPO with IVF and booked for the OR. On 07/19/24 the patient went to the OR with Dr Morris for a Laparoscopic Appendectomy. The patient tolerated the procedure well, see operative report for full details. He was admitted to the hospital for IV antibiotics, and a KAYLEIGH drain was placed intraoperatively. Throughout the course of his stay his diet was advanced, pain managed on prn meds, and incisions clean/dry/intact. On POD#3 07/22/24 the patient was deemed stable for discharge to home. His KAYLEIGH drain was removed prior to discharge, he was given return precautions, follow up recommendations, a prescription for an antibiotic and analgesics. All questions answered. Total Time Total Time Spent Total Time Spent (In Minutes): 10 Discharge Plan Discharge Items Patient Disposition: Home - Self-Care Reason For Visit: S/P LAP APPY Discharge Diagnosis: perforated appendicitis Activity: As commented below Lifting: No more than 10 pounds Bathing Comment: you can shower, soaking in pools/baths for 2 weeks Exercise/Sports: Wait until after follow-up appointment Driving/Machine Use: no driving while taking narcotics for pain Non-emergency contact: Surgeon Call non-emergency contact if: you have any medication questions, your symptoms worsen, your pain is not controlled, your pain is worsening, you have a fever, your temperature is above 101.5, your wound has increased redness, your wound has increased drainage and your wound pain has increased Follow-up/Referrals: Abad Morris DO [Physician] - 07/30/24 9:30 am (call office for a follow up 1-2 weeks ) [facility] [Primary Care Provider] - Diet: Regular Addtl Attending Provider Instructions: You have small white bandages on underneath that are over your incisions called steri strips. You may shower with these on. They will tend to fall off on their own in a 7-10 days. keep your KAYLEIGH drainage site covered with a bandaid &/or dry gauze/tape until healed. change daily and as needed You may purchase Tylenol and or Ibuprofen over the counter if needed for addition pain control over the next few days. Take per manufacturers instructions, Do not take more than 3 grams of Tylenol in 24 hours. Take all of your antibiotics as directed even if you are feeling better. Pending Studies at Discharge: Yes Stand-Alone Forms: Work/School Release (ED), [facility], Smoking Cessation Medications and DC Order Prescriptions: New oxycodone 5 mg tablet 5 - 10 mg PO .[id number] MDD no more than 6 tabs in 24hours PRN (Reason: pain) Qty: 15 0RF amoxicillin-pot clavulanate 875-125 mg tablet 1 tab PO Q12H Qty: 20 0RF Continued omeprazole 40 mg capsule,delayed release(DR/EC) 40 mg PO BID Qty: 180 1RF dicyclomine 10 mg capsule 10 mg PO TID PRN (Reason: abdominal pain/diarrhea) Qty: 90 2RF rizatriptan [Maxalt] 10 mg tablet 10 mg PO Q2H PRN (Reason: migraine headache) Qty: 9 3RF Rx Instructions: do not exceed 3 doses per 24 hrs sertraline 100 mg Tablet 100 mg PO QAM trazodone 100 mg Tablet 100 mg PO HS Vitamin B-12 1 dose PO QAM Vitamin D3 1 dose PO QAM Discharge Orders: Discharge Order (Routine); Ordered 07/22/24 Ordered By: Angy Phma/Other Patient Handouts: Appendectomy Admission Data Admit Date/Time: 07/19/24 14:18 Attending Provider: Abad Morris Admit Provider: Abad Morris Primary Care Provider: [facility] Other Interventions: Discharge Summary Assessment (RN) Last Done: 07/22/24 12:03 Supervising Physician Co-Signing Physician Notes Postoperative day 3 laparoscopic appendectomy for perforated appendicitis He is tolerating a diet without nausea and vomiting and is passing flatus, but no BM His white count continues to downtrend and has been afebrile His pains been controlled He can be discharged today and we will remove his drain prior to discharge Coding Level of Care Code 74372 IN/OBS DISCH 30 MIN/LESS Diagnoses Acute appendicitis K35.80
== END 2024-07-22 13:30 | disposition home or self-care (01) | DRG 399 ==
LOC: ED 08:54 → OR 11:57 → ED 12:00 → 3N 14:18